=== PATIENT | male | born 1950 | race Caucasian/White ===

== ENCOUNTER → 2017-03-09 | Outpatient (CLI) | payer BC ==
[~2017-03-09] MED LIST: EZET10TA38 PO; MULT-506 PO; OMEG10007 PO; SULI200T4 PO; TADA5TAB11 PO
[2017-03-09 13:40] LABS: BLOOD UREA NITROGEN 16 mg/dl (7-18); BUN/CREATININE RATIO 16.7 (10-20); CREATININE 0.95 mg/dl (0.60-1.40)
[2017-03-09 13:44] LABS: PROSTATE SPECIFIC ANTIGEN 0.015 ng/ml (0.000-4.000)
--- NOTE | 2017-03-19 09:41 | CODING QUERY MEDICAL NECESSITY ---
CQSUPPORTING DIAGNOSIS NEEDED A supporting diagnosis is required for the test/procedure performed on this patient in order for us to be reimbursed by the patient's insurance. Please provide a supporting diagnosis for the following test/procedure listed below next to the test name along with your signature. *If there is no additional diagnosis for this patient that would support the following test/procedure please document that below next to the test/procedure. Test(s)/Procedure(s) that require a supporting diagnosis: DOS 03/09/17 PROSTATE SPECIFIC Provider Signature: Date: Thank you Saritha Hdez [employer] Once completed, please kindly fax back to [phone] For questions please call [phone]
== END | disposition home or self-care (01) ==
LOC: C.LABSPEC 12:05
PROVIDERS: ATTEND Urology
DX: T19.1XXA Foreign body in bladder, initial encounter (principal); X58.XXXA Exposure to other specified factors, initial encounter; C61 Malignant neoplasm of prostate

== ENCOUNTER → 2017-04-03 | Outpatient (CLI) | payer BC ==
--- NOTE | 2017-04-03 12:10 | DIAGNOSTIC IMAGING REPORT ---
C-SPINE ROUTINE 4 OR 5 VIEWS CLINICAL HISTORY: Neck and shoulder pain COMPARISON STUDY: No previous studies for comparison. FINDINGS: The prevertebral soft tissues are normal. No fractures or subluxations are visualized. There are degenerative changes with anterior osteophytic spurring at the C5-6 and C6-7 levels. There is minor left-sided foraminal encroachment at the C5-6 level. There are calcifications within the ligamentum nuchae. IMPRESSION: 1. No acute fractures 2. Degenerative changes the C5-6 and C6-7 levels. 3. Mild left-sided foraminal encroachment at the C5-6 level. Electronically signed by: Mayank Guadarrama M.D. 04/03/2017 12:09 PM Dictated Date/Time: 04/03/2017 12:08 PM
--- NOTE | 2017-04-03 12:11 | DIAGNOSTIC IMAGING REPORT ---
LEFT SHOULDER MIN 2 VIEWS ROUTINE, RIGHT SHOULDER MIN 2 VIEWS ROUTINE CLINICAL HISTORY: NECK PAIN, SHOULDER JOINT PAIN, bilateral shoulder pain. COMPARISON STUDY: None. FINDINGS: No fracture or dislocation within the right or left shoulder. Mild space narrowing and small marginal osteophytes within the bilateral glenohumeral joints consistent with degenerative change. A right and left clavicle are intact. Small focus of calcification within the distal bilateral supraspinatus tendons. IMPRESSION: 1. Mild bilateral shoulder osteoarthritis. 2. Small foci of calcification within the distal bilateral supraspinatus tendons consistent with calcific tendinitis. Electronically signed by: Joe Cadet M.D. 04/03/2017 12:10 PM Dictated Date/Time: 04/03/2017 12:08 PM
== END | disposition home or self-care (01) ==
LOC: C.RAD 11:41
PROVIDERS: ATTEND Physician Assistant
DX: M25.512 Pain in left shoulder (principal); M25.511 Pain in right shoulder; M54.2 Cervicalgia; M75.82 Other shoulder lesions, left shoulder; M75.81 Other shoulder lesions, right shoulder; M47.812 Spondylosis without myelopathy or radiculopathy, cervical region

== ENCOUNTER → 2017-05-17 | Outpatient (CLI) | payer BC ==
--- NOTE | 2017-05-17 14:43 | DIAGNOSTIC IMAGING REPORT ---
CERVICAL WITHOUT CONTRAST HISTORY: Pain. Neuropathy. R20.0 TECHNIQUE: Multiplanar multisequence MRI of the cervical spine was performed without the use of contrast. COMPARISON STUDY: None. FINDINGS: Moderate degenerative disc change at the entire cervical region. Signal characteristics of the cervical cord are unremarkable. C2-C3: Minimal disc bulge. No contact with any significant neural element. C3-C4: Moderate osteophytic narrowing right neuroforamina. C4-C5: No significant central canal or neural foraminal narrowing. C5-C6: Mild broad-based disc herniation with mild impact anterior cervical cord. Moderate narrowing of the neuroforamina bilaterally. C6-C7: No significant central canal or neural foraminal narrowing. C7-T1: No significant central canal or neural foraminal narrowing. IMPRESSION: 1. Moderate degenerative disc change throughout the entire cervical region. 2. Moderate osteophytic narrowing right neuroforamina at C3-C4. 3. Broad-based disc herniation C5-C6 with mild impact of the anterior cervical cord. Moderate/significant narrowing of the neuroforamina bilaterally. The above report was generated using voice recognition software. It may contain grammatical, syntax or spelling errors. Electronically signed by: Mo Lopez M.D. 05/17/2017 2:42 PM Dictated Date/Time: 05/17/2017 2:38 PM
== END | disposition home or self-care (01) ==
LOC: C.MRI 13:21
PROVIDERS: ATTEND Physician Assistant
DX: R20.2 Paresthesia of skin (principal)

== ENCOUNTER → 2017-08-24 | Outpatient (CLI) | payer BC, OTHER ==
[2017-08-24 14:50] LABS: BLOOD UREA NITROGEN 16 mg/dl (7-18); CREATININE 1.05 mg/dl (0.60-1.40)
== END | disposition home or self-care (01) ==
LOC: C.LABSPEC 13:18
PROVIDERS: ATTEND Urology
DX: R32 Unspecified urinary incontinence (principal)

== ENCOUNTER → 2018-03-19 | Outpatient (CLI) | payer OTHER ==
--- NOTE | 2018-03-19 09:31 | DIAGNOSTIC IMAGING REPORT ---
ULTRASOUND EXAM AAA SCREEN CLINICAL HISTORY: SCREENING FOR AAA COMPARISON STUDY: No previous studies for comparison. FINDINGS: There is no evidence for abdominal aortic aneurysmal dilatation. The aorta measures a maximum of 23 mm in diameter. The right iliac artery measures 14 mm. The left iliac artery measures 13 mm. Incidental note is made of a 6.5 cm left renal cyst containing a thin septation. IMPRESSION: No evidence of abdominal aortic aneurysm. Electronically signed by: Mayank Guadarrama M.D. 03/19/2018 9:29 AM Dictated Date/Time: 03/19/2018 9:28 AM
== END | disposition home or self-care (01) ==
LOC: C.ULTR 09:05
PROVIDERS: ATTEND Physician Assistant
DX: Z13.6 Encounter for screening for cardiovascular disorders (principal); Z87.891 Personal history of nicotine dependence